=== PATIENT | female | born 1965 | race Caucasian/White ===

== ENCOUNTER 2016-05-19 08:31 | Emergency (ER) | payer BC ==
--- NOTE | 2016-05-19 09:12 | Emergency Department Record ---
History of Present Illness - General Chief complaint: Facial Swelling Stated complaint: SWELLING RT SIDE OF FACE Time Seen by Provider: 05/19/16 09:04 Source: Patient Mode of Arrival: Ambulatory Limitations: No limitations - History of Present Illness Initial Comments: pt has had a bad tooth in the right upper jaw that started swelling 2 days ago. she is calling a dentist tomorrow. she is on methotrexate. she sleeps in a recliner. Complaint: Facial swelling Onset/Timin -: Days(s) Exposure: Unknown, Other Symptoms: Facial swelling Severity: Moderate Treatment Prior to Arrival: None Previous Allergy History: None - Related Data Home Medications Medication Instructions Recorded Confirmed Last Taken Aspirin, Regular 325 mg PO DAILY 05/19/16 05/19/16 Unknown Atenolol [Tenormin] 12.5 mg PO DAILY 05/19/16 05/19/16 Unknown Atorvastatin Calcium 80 mg PO QHS 05/19/16 05/19/16 Unknown Cholecalciferol (Vitamin D3) 4,000 unit PO DAILY 05/19/16 05/19/16 Unknown [Vitamin D3] Cyclobenzaprine HCl [Flexeril] 10 mg PO QHS 05/19/16 05/19/16 Unknown Fluoxetine HCl [Fluoxetine HCl] 40 mg PO DAILY 05/19/16 05/19/16 Unknown Folic Acid [Folic Acid] 2 mg PO DAILY 05/19/16 05/19/16 Unknown Furosemide [Furosemide] 80 mg PO ASDIR 05/19/16 05/19/16 Unknown Hydrocodone/Acetaminophen 7.5 mg PO TID 05/19/16 05/19/16 Unknown [Hydrocodon-Acetaminoph 7.5-325] Hydroxychloroquine Sulfate 400 mg PO DAILY 05/19/16 05/19/16 Unknown [Plaquenil] Methotrexate Sodium [Trexall] 22.5 mg PO WEEKLY 05/19/16 05/19/16 Unknown Morphine Sulfate [Morphine Sulfate 60 mg PO BID 05/19/16 05/19/16 Unknown ER] Omeprazole Magnesium [Prilosec Otc] 20 mg PO DAILY 05/19/16 05/19/16 Unknown Potassium 99 mg PO DAILY 05/19/16 05/19/16 Unknown Previous Rx's Medication Instructions Recorded Clindamycin HCl [Cleocin HCl] 300 mg PO QID #30 capsule 05/19/16 Hydrocodone/Acetaminophen [Odin 1 tab PO Q6H PRN #10 tab 05/19/16 5mg/325mg] Allergies Allergy/AdvReac Type Severity Reaction Status Date / Time cephalexin monohydrate Allergy DIFFICULTY Verified 05/19/16 08:42 [From Keflex] BREATHING clarithromycin [From Biaxin] Allergy HIVES Verified 05/19/16 08:42 sulfamethoxazole Allergy DIARRHEA Verified 05/19/16 08:42 [From Bactrim] trimethoprim [From Bactrim] Allergy DIARRHEA Verified 05/19/16 08:42 Travel Screening - Travel/Exposure Within Last 30 Days Have you traveled within the last 30 days?: No Review of Systems Reviewed: No additional complaints except as noted below Constitutional: Reports: As per HPI. Denies: Chills, Fever, Malaise, Night sweats, Weakness, Weight change Eyes: Reports: As per HPI. Denies: Eye discharge, Eye pain, Photophobia, Vision change ENT: Reports: As per HPI. Denies: Congestion, Dental pain, Ear pain, Epistaxis , Hearing loss, Throat pain Respiratory: Reports: As per HPI. Denies: Cough, Dyspnea, Hemoptysis, Stridor, Wheezes Cardiovascular: Reports: As per HPI. Denies: Arrhythmia, Chest pain, Dyspnea on exertion, Edema, Murmurs, Orthopnea, Palpitations, Paroxysmal nocturnal dyspnea, Rheumatic Fever, Syncope Endocrine: Reports: As per HPI. Denies: Fatigue, Heat or cold intolerance, Polydipsia, Polyuria Gastrointestinal: Reports: As per HPI. Denies: Abdominal pain, Constipation, Diarrhea, Hematemesis, Hematochezia, Melena, Nausea, Vomiting Genitourinary: Reports: As per HPI. Denies: Abnormal menses, Discharge, Dyspareunia, Dysuria, Frequency, Hematuria, Incontinence, Retention, Urgency Musculoskeletal: Reports: As per HPI. Denies: Arthralgia, Back pain, Gout, Joint swelling, Myalgia, Neck pain Skin: Reports: As per HPI. Denies: Bruising, Change in color, Change in hair/ nails, Lesions, Pruritus, Rash Neurological: Reports: As per HPI. Denies: Abnormal gait, Confusion, Headache, Numbness, Paresthesias, Seizure, Tingling, Tremors, Vertigo, Weakness Psychiatric: Reports: As per HPI. Denies: Anxiety, Auditory hallucinations, Depression, Homicidal thoughts, Suicidal thoughts, Visual hallucinations Hematological/Lymphatic: Reports: As per HPI. Denies: Anemia, Blood Clots, Easy bleeding, Easy bruising, Swollen glands Past Medical History - SOCIAL HISTORY Smoking Status: Current every day smoker Alcohol Use: None Drug Use: None - RESPIRATORY Hx Respiratory Disorders: No - CARDIOVASCULAR Hx Cardio Disorders: Yes Hx Abnormal EKG: Yes Hx Cardiac Cath: Yes Hx Heart Attack: Yes - NEURO Hx Neuro Disorders: Yes Hx Headaches: Yes - GI Hx GI Disorders: No - Hx Genitourinary Disorders: No - ENDOCRINE Hx Endocrine Disorders: No - MUSCULOSKELETAL Hx Musculoskeletal Disorders: Yes Hx Arthritis: Yes (RA) - PSYCH Hx Psych Problems: Yes Hx Depression: Yes - HEMATOLOGY/ONCOLOGY Hx Hematology/Oncology Disorders: No Family Medical History Any Significant Family History?: No Physical Exam - General General Appearance: Alert, Oriented x3, Cooperative, Mild distress - Head Head exam: Normal inspection - Eye Eye exam: Normal appearance, PERRL, EOMI Pupils: Normal accommodation - ENT ENT exam: Normal exam, Mucous membranes moist, Normal external ear exam, Normal orophraynx, TM's normal bilaterally Ear exam: Normal external inspection. negative: External canal tenderness Nasal Exam: Normal inspection. negative: Discharge, Sinus tenderness Mouth exam: Normal external inspection, Tongue normal Teeth exam: Dental caries, Dental tenderness #, Other (facial swelling) Throat exam: Normal inspection. negative: Tonsillar erythema, Tonsillar exudate - Neck Neck exam: Normal inspection, Full ROM. negative: Tenderness - Respiratory Respiratory exam: Normal lung sounds bilaterally. negative: Respiratory distress - Cardiovascular Cardiovascular Exam: Regular rate, Normal rhythm, Normal heart sounds - GI/Abdominal GI/Abdominal exam: Soft, Normal bowel sounds. negative: Tenderness - Rectal Rectal exam: Deferred - exam: Deferred - Extremities Extremities exam: Normal inspection, Full ROM, Normal capillary refill. negative: Tenderness - Back Back exam: Reports: Normal inspection, Full ROM. Denies: Muscle spasm, Rash noted, Tenderness - Neurological Neurological exam: Alert, CN II-XII intact, Normal gait, Oriented X3 - Psychiatric Psychiatric exam: Normal affect, Normal mood - Skin Skin exam: Dry, Intact, Normal color, Warm Course Vital Signs 05/19/16 08:35 Temperature 98.2 F Pulse Rate 82 Respiratory 14 Rate Blood Pressure 129/80 Pulse Ox 96 Disposition Disposition: Discharge Clinical Impression: Dental Abscess Disposition: Home, Self-Care Condition: (1) Good Instructions: Dental Abscess (ED) Additional Instructions: follow up with dentist callum. return sooner if worse. sleep elevated Prescriptions: Clindamycin HCl [Cleocin HCl] 300 mg PO QID #30 capsule Hydrocodone/Acetaminophen [Odin 5mg/325mg] 1 tab PO Q6H PRN #10 tab PRN Reason: Pain - General Forms: Patient Portal Access
[2016-05-19] MEDS ORDERED: CLINDAMYCIN 150 MG CAP PO ONE (09:15)
[2016-05-19] MEDS ORDERED: PROMETHAZINE HCL 25 MG/ML VIAL IM ONE (09:20)
[2016-05-19] MEDS ORDERED: HYDROMORPHONE HCL 1 MG/ML CPJ IM ONE (09:20)
== END 2016-05-19 09:59 | disposition home or self-care (01) ==
LOC: ER 08:31
DX: K04.7 Periapical abscess without sinus (principal)
CPT/HCPCS: 99283 ×2; 96372; J1170; J2550